=== PATIENT | female | born 1980 | race Caucasian/White ===

== ENCOUNTER 2021-10-28 11:41 | Emergency (ER) | payer OTHER ==
[2021-10-28] MEDS ORDERED: Ketorolac 30 MG/ML SDV IM ONE (12:18)
== END 2021-10-28 14:20 | disposition home or self-care (01) ==
LOC: JP.ED 11:41
DX: K59.04 Chronic idiopathic constipation (principal); F41.9 Anxiety disorder, unspecified; Z87.891 Personal history of nicotine dependence; Z88.2 Allergy status to sulfonamides; Z88.1 Allergy status to other antibiotic agents
CPT/HCPCS: 36415; 74176; 80048; 83605; 84145; 85025; 99282; 99284-25; J1885

== ENCOUNTER 2024-11-10 19:14 | Emergency (ER) | payer OTHER | END 2024-11-10 20:30 | disposition home or self-care (01) | LOC: JP.ED 19:14 | DX: I10 Essential (primary) hypertension (principal); Z87.891 Personal history of nicotine dependence; E03.9 Hypothyroidism, unspecified; Z86.16 Personal history of COVID-19; Z90.710 Acquired absence of both cervix and uterus; Z79.890 Hormone replacement therapy; Z79.899 Other long term (current) drug therapy; Z88.2 Allergy status to sulfonamides; Z88.8 Allergy status to other drugs, medicaments and biological substances | CPT/HCPCS: 99283 ==